=== PATIENT | female | born 1985 | race Caucasian/White ===

== ENCOUNTER 2019-10-03 02:51 | Emergency (ER) | payer BC, SELFPAY ==
[2019-10-03 02:58] VITALS: BP 175/102; PULSE 122; RESP 16; TEMP 37; O2SAT 99; BMI 30.9
--- NOTE | 2019-10-03 03:09 | CTR_ITS ---
PROCEDURE INFORMATION: Exam: CT Abdomen And Pelvis With Contrast Exam date and time: 10/03/2019 3:24 AM Age: 34 years old Clinical indication: Abdominal pain; Generalized TECHNIQUE: Imaging protocol: Computed tomography of the abdomen and pelvis with intravenous contrast. Total DLP: 1152.53 mGy-cm Radiation optimization: All CT scans at this facility use at least one of these dose optimization techniques: automated exposure control; mA and/or kV adjustment per patient size (includes targeted exams where dose is matched to clinical indication); or iterative reconstruction. Contrast material: OMNI 300; Contrast volume: 95 ml; Contrast route: 20G; COMPARISON: No relevant prior studies available. FINDINGS: Mediastinum: Thickening of esophageal wall is suspicious for inflammatory change. Liver: Normal. No mass. Gallbladder and bile ducts: Normal. No calcified stones. No ductal dilation. Pancreas: Normal. No ductal dilation. Spleen: Normal. No splenomegaly. Adrenals: Normal. No mass. Kidneys and ureters: Normal. No hydronephrosis. Stomach and bowel: Unremarkable. No obstruction. No mucosal thickening. Appendix: No evidence of appendicitis. Intraperitoneal space: Unremarkable. No free air. No significant fluid collection. Vasculature: Unremarkable. No abdominal aortic aneurysm. Lymph nodes: Unremarkable. No enlarged lymph nodes. Bladder: Unremarkable as visualized. Reproductive: IUD is in place. Bones/joints: No acute fracture. Soft tissues: Unremarkable. Other findings: Mildly prominent right lower quadrant are likely reactive. CT/CT abdomen pelvis w con* [id number] IMPRESSION: Esophagitis suspected. Mildly prominent right lower quadrant are likely reactive. Normal appendix. Radiation Dose CTDIVOL = (mGy): DLP = 1152.53 (mGy-cm)
--- NOTE | 2019-10-03 03:15 | US_ITS ---
WS: [id number] ULTRASOUND ABDOMEN LIMITED CLINICAL INFORMATION: Pain COMPARISON: None. FINDINGS: Liver Size: Normal. Craniocaudal length: 13.7 cm. Echogenicity: Normal. Surface nodularity: None. Mass (size and location): None. Bile ducts Intrahepatic ducts: Normal. Common bile duct diameter: 0.4 cm. Gallbladder Normal. Gallstones: None. Gallbladder sludge: None. Gallbladder wall thickening: None. Pericholecystic fluid: None. Sonographic Kong sign: Absent. Pancreas Normal as visualized. Right kidney: Normal. Hydronephrosis: None. Size: 10.6 cm x 5.5 cm x 5.5 cm. Abdominal aorta and IVC Visualized portions are normal. Ascites: None. US/US gall bladder [id number] IMPRESSION: Normal abdominal ultrasound
--- NOTE | 2019-10-03 03:17 | ED_ITS ---
HPI - Abdominal Pain General: Chief Complaint: Abdominal Pain Stated Complaint: ABD PAIN Time Seen by Provider: 10/03/19 03:02 History of Present Illness: HPI narrative: Sylvie is a nice 34-year-old female who comes in complaining of right-sided abdominal pain. She states the pain is been intermittent for the past 3 days. She cannot localize to the upper or lower part of her abdomen but just describes pain all along the right side. She denies any thing similar in the past. She has no nausea or vomiting, no fevers or chills, no dysuria or urinary frequency/urgency, no vaginal discharge or bleeding she denies any diarrhea or constipation. She has had any no ill contacts and is again she denies having anything similar in the past. Associated Symptoms: Denies chills, coffee ground emesis, constipation, GI cramping, diarrhea, dysuria, fever(s), hematochezia, hematuria, hematemesis, melena, nausea, syncope and vomiting Review of Systems General: Reports: other (negative unless marked) Const: Denies: fever, chills, body aches, fatigue, malaise or diaphoresis Eyes: Denies: change in vision or blurry vision ENMT: Denies: throat pain, painful swallowing, hoarseness, ear pain, ear discharge, Change in hearing or nasal discharge Card: Denies: chest pain, palpitations, irregular heart rhythm, syncope, pre- syncope, shortness of breath on exertion or shortness of breath when lying down Resp: Denies: shortness of breath, productive cough, non-productive cough, wheezing, coughing up blood or chest congestion GI: Reports: abdominal pain; Denies: nausea, vomiting, vomiting blood, coffee grounds in vomit, diarrhea, constipation, cramping, blood in stool or black tarry stool : Denies: flank pain, painful urination, urinary frequency, urinary urgency, decreased urine ouput, urinary incontinence or blood in urine Musc: Denies: neck pain, back pain, extremity pain, extremity swelling, joint pain, joint swelling, joint warmth or joint stiffness Skin/Breast: Denies: rash, skin tenderness or yellow skin Neuro: Denies: headache, numbness in extremities, weakness in extremities, changes in sensation, lack of coordination, difficulty walking, dizziness, vertigo or confusion Endo: Denies: excessive thirst, tired all the time, cold intolerance, excessive sweating, flushing or hot flashes Jeffry/Lymph: Denies: easy bruising, easy bleeding, petechiae or enlarged lymph nodes All/Imm: Denies: hives, throat swelling, tongue swelling, facial swelling or acute wheezing PFSH ED PFSH: Medical History No pertinent past medical history Surgical History Hx of abdominal surgery Social History Smoking and tobacco status: current every day smoker Physical Exam Const: COMMON NORMALS: no apparent distress, oriented x3, no limitations, healthy appearing and well nourished EXAM LIMITATIONS: no altered mental status GENERAL APPEARANCE: cooperative, well kempt and well developed ORIENTATION/CONSCIOUSNESS: Yes awake HENMT: COMMON NORMALS: normocephalic, head/scalp atraumatic, hearing grossly normal bilaterally, external ears normal, EAC's normal, external nose normal and moist oral mucous membranes HEAD & SCALP: normal to inspection, normocephalic and atraumatic FACE & SINUS: normal facial exam and face symmetric NOSE: external nose normal and nares normal EXTERNAL EAR: Yes external ears normal EXTERNAL AUDITORY CANAL: EAC's normal MOUTH: oral and palatal mucosa normal and tongue normal Eye: COMMON NORMALS: PERRL, EOMs intact bilaterally, conjunctivae normal and n o scleral icterus GENERAL EYE: normal appearance of both eyes and normal light reflex CONJUNCTIVA: Yes conjunctivae normal SCLERA: sclerae normal CORNEA: Yes corneas normal PUPIL: Yes PERRL DIRECT OPHTHALMOSCOPY: Yes normal light reflex Neck/C-Spine: COMMON NORMALS: full ROM, no lymphadenopathy, supple, no meningeal signs and no JVD GENERAL: Yes normal visual inspection and Yes trachea midline CERVICAL SPINE: Yes cervical ROM normal Chest: COMMONS NORMALS: inspection of chest normal and palpation of chest normal Resp: COMMON NORMALS: normal respiratory effort, no retractions, no use of accessory muscles and clear to auscultation bilaterally EFFORT & INSPECTION: Yes able to speak in complete sentences AUSCULTATION: clear to auscultation bilaterally Cardio: COMMON NORMALS: no JVD, regular rate, regular rhythm, S1 normal heart sound, S2 normal heart sound, no gallops, no clicks, no murmurs and no rub JUGULAR VENOUS DISTENTION: no JVD RATE: regular rate RHYTHM: regular rhythm HEART SOUNDS: S1 normal and S2 normal GI: COMMON NORMALS: soft to palpation, no hepatosplenomegaly and no masses PALPATION: Yes soft, Yes tender Details: RLQ and RUQ, No guarding, No rigid and Yes no hepatosplenomegaly : COMMON NORMALS: Yes no CVA tenderness BLADDER/KIDNEY EXAM: Yes no CVA tenderness Back/Pelvis: COMMON NORMALS: no CVA tenderness, thoracic and lumbar spine normal to inspection, no thoracic nor lumbar tenderness and thoraco-lumbar ROM normal Extremity: COMMON NORMALS: normal to inspection, full ROM, normal capillary refill, no joint enlargement, no clubbing, cyanosis or edema and no calf tenderness Neuro: COMMON NORMALS: oriented x3, CN's II-XII intact bilaterally, moves all extremities, no focal motor deficits and no sensory deficits noted MENINGEAL SIGNS: Yes no meningeal signs Psych: COMMON NORMALS: mental status grossly normal, thought process normal, cooperative, affect normal, speech normal and activity/motor behavior normal APPEARANCE: Yes well kempt SPEECH: Yes normal speech THOUGHT PROCESS: normal thought process Skin: COMMON NORMALS: no rashes or lesions noted, skin turgor normal, no jaundice, no petechiae and no mottling GENERAL SKIN EXAM: no rashes or lesions noted and turgor normal Course Vital Signs: Vital signs: Vital Signs Temperature 98.6 F 10/03/19 02:58 Pulse Rate 122 H 10/03/19 02:58 Respiratory Rate 16 10/03/19 03:32 Blood Pressure 175/102 10/03/19 02:58 Pulse Oximetry 97 10/03/19 03:32 MDM - Abdominal Pain MDM Narrative: Medical decision making narrative: Sylvie is a 34-year-old female who comes in complaining of right-sided abdominal pain. It was hard to pinpoint whether it was her right upper quadrant or right lower quadrant that caused her the most discomfort. Her CT scan shows a normal appendix but esophagitis. Her gallbladder ultrasound is normal so at this time I think the most likely reason is esophagitis. She is had resolution of her pain while here. I will place her on a proton pump inhibitor short-term and give her a GI cocktail here. The patient understands though that this still could be developing appendicitis and she may need to return if her symptoms worsen. Lab Data: Attestation: I reviewed the patient's lab results. Labs: Lab Results 10/03/19 10/03/19 10/03/19 Range/Units 03:40 03:40 03:40 WBC 11.8 H (4.0-10.0) 10^3/ uL RBC 5.21 (4.1-5.3) 10^6/u L Hgb 15.5 H (11.5-15.3) g/dL Hct 48.3 H (37.0-47.0) % MCV 92.7 (81-99) fL MCH 29.8 (28.0-34.0) pg MCHC 32.1 (30.0-36.0) g/dL RDW 12.1 (12.1-15.1) % Plt Count 325 (130-400) 10^3/c mm MPV 9.9 (7.4-10.4) fL Neut % (Auto) 69.4 % Lymph % (Auto) 21.4 % [place] % (Auto) 6.8 % Eos % (Auto) 1.6 % Baso % (Auto) 0.5 % Neut # (Auto) 8.2 H (1.8-7.7) 10^3/u L Lymph # (Auto) 2.5 (0.8-4.8) 10^3/u L [place] # (Auto) 0.8 (0.2-0.9) 10^3/u L Eos # (Auto) 0.2 (0.0-0.8) 10^3/u L Baso # (Auto) 0.1 (0.0-0.1) 10^3/u L Nucleated RBC % (a uto) 0 % Nucleated RBCs # 0.0 /100WBC Sodium 137 (136-145) mmol/L Potassium 3.7 (3.5-5.1) mmol/L Chloride 98 (98-107) mmol/L Carbon Dioxide 25 (22-29) mmol/L Anion Gap 17.7 (5-19) BUN 9 (6-20) mg/dL Creatinine 0.6 (0.5-0.9) mg/dL GFR Calculation 113.8 (90-130) mL/min Glucose 100 (65-115) mg/dL Calculated Osmolal ity 280 L (285-295) mOsm/k g Calcium 10.6 H (8.5-10.5) mg/dL Total Bilirubin 0.2 (0.15-1.2) mg/dL AST 15 (0-32) U/L ALT 15 (0-33) U/L Alkaline Phosphata se 59 (35-105) IU/L Total Protein 8.6 (6.6-8.7) g/dL Albumin 5.2 (3.5-5.2) g/dL Globulin 3.4 (1.3-4.6) g/dL Lipase 22 (13-60) U/L HCG, Qual Negative (Negative) Imaging Data ^: CT Abd/Pel: Radiologist's impression: [address] [address] [address] Scan Report Signed Patient: Sylvie Holloway Unit #: [id number] : 1985 Age/Sex: 34 / F ADM Date: 10/03/19 Loc: ER Room/Bed: Attending Dr: Ordering Provider/Ordering MD: Elida Canela DO Date of Service: 10/03/19 Procedure(s): CT abdomen pelvis w con* [id number] Accession Number(s): [id number] Report Number: [id number] PROCEDURE INFORMATION: Exam: CT Abdomen And Pelvis With Contrast Exam date and time: 10/03/2019 3:24 AM Age: 34 years old Clinical indication: Abdominal pain; Generalized TECHNIQUE: Imaging protocol: Computed tomography of the abdomen and pelvis with intravenous contrast. Total DLP: 1152.53 mGy-cm Radiation optimization: All CT scans at this facility use at least one of these dose optimization techniques: automated exposure control; mA and/or kV adjustment per patient size (includes targeted exams where dose is matched to clinical indication); or iterative reconstruction. Contrast material: OMNI 300; Contrast volume: 95 ml; Contrast route: 20G; COMPARISON: No relevant prior studies available. FINDINGS: Mediastinum: Thickening of esophageal wall is suspicious for inflammatory change. Liver: Normal. No mass. Gallbladder and bile ducts: Normal. No calcified stones. No ductal dilation. Pancreas: Normal. No ductal dilation. Spleen: Normal. No splenomegaly. Adrenals: Normal. No mass. Kidneys and ureters: Normal. No hydronephrosis. Stomach and bowel: Unremarkable. No obstruction. No mucosal thickening. Appendix: No evidence of appendicitis. Intraperitoneal space: Unremarkable. No free air. No significant fluid collection. Vasculature: Unremarkable. No abdominal aortic aneurysm. Lymph nodes: Unremarkable. No enlarged lymph nodes. Bladder: Unremarkable as visualized. Reproductive: IUD is in place. Bones/joints: No acute fracture. Soft tissues: Unremarkable. Other findings: Mildly prominent right lower quadrant are likely reactive. CT/CT abdomen pelvis w con* [id number] IMPRESSION: Esophagitis suspected. Mildly prominent right lower quadrant are likely reactive. Normal appendix. Radiation Dose CTDIVOL = (mGy): DLP = 1152.53 (mGy-cm) Dictated By: Juan Nunes MD Signed By: Juan Nunes MD Signed Date/Time: 10/03/19445 DD/ 3 US: My impression: Right upper quadrant ultrasound, tech interpretation -gallbladder normal. Common bile duct normal. Pancreas, liver and right kidney normal. Aorta and IVC normal. Discharge Plan Discharge Patient Disposition: Home, Self-Care Clinical Impression: Esophagitis Abdominal pain Qualifiers: Abdominal location: generalized Qualified Code(s): R10.84 - Generalized abdominal pain Prescriptions: New Protonix 40 mg tablet,delayed release (DR/EC) 40 mg PO DAILY 28 Days RF: 0 Zofran 4 mg tablet 4 mg PO Q8H PRN (Reason: nausea and vomiting) 3 Days RF: 0 No Action phentermine 37.5 mg Tablet 37.5 mg PO DAILY RF: 0 losartan-hydrochlorothiazide 100-25 mg Tablet 1 tab PO DAILY RF: 0 Discharge Orders: Discharge Order (Routine); Ordered 10/03/19 Ordered By: Elida Canela Referrals: Nilesh Pérez MD [Physician] - 1-3 days Ofelia Helm FNP-C [Family Provider] - Discharge Diet: Advance as tolerated and Clear Liquid Discharge Activity: Increase activity as tolerated Patient Instructions: Gastroesophageal Reflux Disease (ED), Abdominal Pain (ED) Activity Restrictions/Additional Instructions: Please return to the ER immediately for any of the signs or symptoms listed on your discharge instruction sheets, worsening/changing of your symptoms, you are not getting better as quickly as expected, or for ANY other cause or concerns. Developing appendicitis is still a possibility as a cause for your pain. If your pain worsens, your pain settles in your right lower quadrant, you develop a fever, or have any other concerns please return to the ER immediately for recheck to rule out appendicitis. Discharge Date/Time: 10/03/19 03:50 Coding Level of Care Code ED Cable Maintainer for [facility]jer[facility] Exam Comprehensive
[2019-10-03] MEDS: sodium chloride 0.9% 1,000 ML 999 ML IV (03:21)
[2019-10-03] MEDS: ondansetron 2 mg/ML SDV 2 mL 4 MG IVP (03:23)
[2019-10-03 03:32] VITALS: RESP 16; O2SAT 97
[2019-10-03] MEDS: morphine 4 mg/mL SDV 1 mL IVP (03:32)
[2019-10-03 03:55] LABS: Basophils # 0.1 10^3/uL (0.0-0.1); Basophils % 0.5 %; Eosinophils # 0.2 10^3/uL (0.0-0.8); Eosinophils % 1.6 %; Hematocrit 48.3 % (37.0-47.0); Hemoglobin 15.5 g/dL (11.5-15.3); Lymphocytes # 2.5 10^3/uL (0.8-4.8); Lymphocytes % 21.4 %; Mean Corpuscular HGB Conc 32.1 g/dL (30.0-36.0); Mean Corpuscular Hemoglobin 29.8 pg (28.0-34.0); Mean Corpuscular Volume 92.7 fL (81-99); Mean Platelet Volume 9.9 fL (7.4-10.4); Monocytes # 0.8 10^3/uL (0.2-0.9); Monocytes % 6.8 %; Neutrophils # 8.2 10^3/uL (1.8-7.7); Neutrophils % 69.4 %; Nucleated Red Blood Cells % 0 %; Platelet Count 325 10^3/cmm (130-400); Red Blood Count 5.21 10^6/uL (4.1-5.3); Red Cell Distribution Width 12.1 % (12.1-15.1); White Blood Count 11.8 10^3/uL (4.0-10.0)
[2019-10-03 04:03] LABS: HCG, Serum Qual Negative (Negative)
[2019-10-03 04:13] LABS: Alanine Aminotransferase 15 U/L (0-33); Albumin Level 5.2 g/dL (3.5-5.2); Alkaline Phosphatase 59 IU/L (35-105); Anion Gap 17.7 (5-19); Aspartate Amino Transferase 15 U/L (0-32); Blood Urea Nitrogen 9 mg/dL (6-20); Calcium 10.6 mg/dL (8.5-10.5); Carbon Dioxide 25 mmol/L (22-29); Chloride 98 mmol/L (98-107); Creatinine Clr Calc Pharmacy 135.2774; Globulin 3.4 g/dL (1.3-4.6); Glomerular Filtration Rate 113.8 mL/min (90-130); Glucose 100 mg/dL (65-115); Lipase 22 U/L (13-60); Osmolality Calculated 280 mOsm/kg (285-295); Potassium 3.7 mmol/L (3.5-5.1); Sodium 137 mmol/L (136-145); Total Bilirubin 0.2 mg/dL (0.15-1.2); Total Protein 8.6 g/dL (6.6-8.7)
[2019-10-03] MEDS: iohexol 300 mg/mL 100 mL Btl IV (04:24)
[2019-10-03] MEDS: lidocaine 2% viscous 15 ML, aluminum-mag hydrox-simethicon 30 ML, sucralfate oral liq 1 GM PO (05:08)
[2019-10-03 05:58] VITALS: BP 157/95; PULSE 76; RESP 16; O2SAT 99
--- NOTE | 2019-10-04 14:36 | DCPLANNER ---
modeling agency manager had message to schedule a follow up appointment for patient with general surgery. modeling agency manager called patient to ask patient if she would like for heel caser to make that appointment. modeling agency manager was unable to speak with patient at this time, a voicemail was left for patient to return transplant case manager phone call.
== END 2019-10-03 06:00 | disposition home or self-care (01) ==
PROVIDERS: Emergency Provider Emergency Medicine; Family Provider Nurse Practitioner
DX: K20.9 Esophagitis, unspecified (principal); R10.84 Generalized abdominal pain; F17.210 Nicotine dependence, cigarettes, uncomplicated
CPT/HCPCS: 12345; 74177; 76705; 80053; 83690; 84703; 85025; 96361; 96374; 96375; 99282; 99284; J2270; J2405; J7030; Q9967

== ENCOUNTER 2019-10-22 08:00 | Day surgery (SDC) | payer BC, OTHER, SELFPAY ==
[2019-10-16 08:28] VITALS: BMI 31.7
--- NOTE | 2019-10-22 08:09 | NM_ITS ---
WS: [id number] NUCLEAR MEDICINE HIDA SCAN WITH GALLBLADDER EJECTION FRACTION HISTORY: ABDOMINAL PAIN COMPARISON: 10/03/2019 CT and ultrasound TECHNIQUE: The patient was intravenously injected with 7.7 mCi of TC99m Mebrofenin. Immediate imaging over the right upper quadrant was followed by 5 minute image and additional images for a total of 60 minutes. Normal uptake of radiotracer throughout the liver. Activity identified in the gallbladder at 15 minutes and well distended by 60 minutes. Activity in the proximal small bowel was seen by 30 minutes. Good washout of the radiotracer from the liver by 60 minutes. The patient then drank 8 ounces of Ensure Plus. Ejection fraction at 60 minutes was 84%. Normal GB ej ection fraction is 35-75%. Post fatty meal symptoms: None. NM/NM hepatobiliary w phar* [id number] IMPRESSION: 1. Normal HIDA scan. 2. Normal gallbladder ejection fraction.
== END 2019-10-22 09:00 | disposition home or self-care (01) ==
LOC: OR 01-29 15:58
PROVIDERS: PCP Nurse Practitioner; Visit Provider Surgery
DX: R10.84 Generalized abdominal pain (principal)
CPT/HCPCS: 78227; A9537

== ENCOUNTER 2025-02-27 11:01 | Outpatient (CLI) | payer BC, SELFPAY ==
--- NOTE | 2025-02-27 11:00 | MM_ITS ---
WS: [id number] BILATERAL 3D TOMOSYNTHESIS DIGITAL SCREENING MAMMOGRAPHY WITH CAD CLINICAL INFORMATION: Z12.31 - Encounter for screening mammogram for malignant ... HISTORY: Screening mammogram. No current complaints. COMPARISON: Baseline TECHNIQUE: Bilateral CC and MLO views. FINDINGS: Scattered fibroglandular densities bilaterally. No suspicious focal mass, asymmetry, calcifications, or architectural distortion. No evidence of malignancy. Dense parenchymal tissue upper outer RIGHT breast. MM/MM [facility] tomosynthesis [id number] IMPRESSION: DENSITY: There are scattered areas of fibroglandular density. BI-RADS: 2 - Benign. FOLLOW UP: 1 Year Follow-up Recommend return to annual screening mammography.
== END 2025-02-27 11:02 | disposition home or self-care (01) ==
LOC: MOBLMAM 11:05
PROVIDERS: PCP Nurse Practitioner; Visit Provider Nurse Practitioner
DX: Z12.31 Encounter for screening mammogram for malignant neoplasm of breast (principal)
CPT/HCPCS: 77063; 77067